=== PATIENT | female | born 2000 | race African-American/Black ===

== ENCOUNTER 2019-09-25 22:41 | Emergency (ER) | payer SELFPAY ==
[2019-09-26 01:12] LABS: APPEARANCE,URINE SLIGHTLY-CLOUDY; BILIRUBIN,URINE NEGATIVE (NEGATIVE); COLOR,URINE YELLOW; GLUCOSE, URINE NEGATIVE (NEGATIVE); KETONES,URINE NEGATIVE (NEGATIVE); LEUKOCYTE ESTERASE,URINE MODERATE (NEGATIVE); NITRITE,URINE NEGATIVE (NEGATIVE); PROTEIN,URINE NEGATIVE (NEGATIVE); URINE SPECIFIC GRAVITY 1.027
--- NOTE | 2019-09-26 04:12 | ER Document Report ---
HPI - HPI Time Seen by Provider: 09/26/19 04:02 Pain Level: 1 Context: Patient is a 18-year-old female that comes emergency department for chief complaint of whitish vaginal discharge with itching for the past 2 days. She states she tried the intravaginal Monistat but she only used a small amount because she feels like it makes it worse. She denies abdominal pain, flank pain, nausea/vomiting, fever/chills. LMP within the past month. She denies any diagnosed medical history of daily medications. She denies any other complaints. - REPRODUCTIVE LMP: Jul Past Medical History - General Information source: Patient - Social History Smoking Status: Current Every Day Smoker Frequency of alcohol use: None Drug Abuse: None Lives with: Family Family History: Reviewed & Not Pertinent Patient has suicidal ideation: No Patient has homicidal ideation: No - Medical History Medical History: Negative - Immunizations Immunizations up to date: Yes Hx Diphtheria, Pertussis, Tetanus Vaccination: Yes Vertical Provider Document - CONSTITUTIONAL General Appearance: WD/WN, No Apparent Distress - HEENT HEENT: Atraumatic, Normal ENT Exam, Normocephalic - NECK Neck: Normal Inspection - RESPIRATORY Respiratory: Breath Sounds Normal, No Respiratory Distress - CARDIOVASCULAR Cardiovascular: Regular Rate, Regular Rhythm - GI/ABDOMEN Gastrointestinal: Abdomen Soft, Abdomen Non-Tender. negative: Abdomen Tender - BACK Back: Normal Inspection - MUSCULOSKELETAL/EXTREMETIES Musculoskeletal/Extremeties: MAEW, FROM, Non-Tender - NEURO Level of Consciousness: Awake, Alert, Appropriate Motor/Sensory: No Motor Deficit, No Sensory Deficit - DERM Integumentary: Warm, Dry, No Rash Course - Re-evaluation Re-evalutation: Urinalysis with mildly elevated specific gravity but otherwise unremarkable. test negative. Recommended pelvic exam to evaluate patient's symptoms but she declined. I feel this is appropriate based on her lack of abdominal pain or other symptoms except for vaginal discharge and itching. She request Diflucan and discharge. She was provided with this. Discussed follow-up and return precautions. Patient states understanding and agreement. - Vital Signs Vital signs: Temp Pulse Resp BP Pulse Ox 98.4 F 96 18 121/80 97 09/25/19 22:50 09/25/19 22:50 09/25/19 22:50 09/25/19 22:50 09/25/19 22:50 - Laboratory Laboratory results interpreted by me: 09/26/19 00:50 Urine Urobilinogen 2.0 H Ur Leukocyte Esterase MODERATE H Urine Ascorbic Acid 40 H Discharge - Discharge Clinical Impression: Vaginal discharge Condition: Stable Disposition: HOME, SELF-CARE Additional Instructions: Your urinalysis does not show any concerning findings at this time other than mild dehydration. Improve hydration. You have been treated for suspected candidal infection. Follow with primary care for additional management. Return for any concerning symptoms including vomiting, abdominal pain, fever, or any other concerning symptoms.
[2019-09-26] MEDS ORDERED: FLUCONAZOLE 100 MG TABLET PO ONE (04:13)
[2019-09-26 04:41] VITALS: BP 118/73
== END 2019-09-26 04:30 | disposition home or self-care (01) ==
LOC: ER 22:41
DX: N89.8 Other specified noninflammatory disorders of vagina (principal); F17.200 Nicotine dependence, unspecified, uncomplicated
CPT/HCPCS: 81001; 81025